=== PATIENT | male | born 1950 | race Caucasian/White ===

== ENCOUNTER 2016-03-26 14:27 | Emergency (ER) | payer BC, MEDICARE ==
--- NOTE | 2016-03-26 15:34 | Emergency Department Record ---
History of Present Illness - General Chief Complaint: Dizziness Stated Complaint: DIZZY,SOME CHEST PAIN,WEAK Time Seen by Provider: 03/26/16 15:21 Source: Patient Mode of Arrival: Ambulatory Limitations: No limitations - History of Present Illness Initial Comments: 65 yo male presents with weakness, sore throat , cough for about 3 days. He is concerned that he may be dehydrated. He states he has has a little less intake the last 3 days while feeling sick. No NVD just decreased appetite and energy. He does have chest pain but states it is a pin point spot on the upper left chest that is tender to touch. No exertional. No rash. No pressure. No shortness of breath. No sweating. Onset/Timin -: Hour(s) Timing: Awoke with symptoms Description: Lightheadedness History of Same: Yes History of Trauma: No Severity: Mild Improves With: Nothing Worsens With: Nothing Associated Symptoms: Chest pain, Weakness - Stanford Coma Scale Eye Response: (4) Open spontaneously Motor Response: (6) Obeys commands Verbal Response: (5) Oriented [place] Total: 15 - Related Data Home Medications Medication Instructions Recorded Confirmed Last Taken Bisoprolol Fumarate/Hctz 1 tab PO DAILY 06/20/14 03/26/16 03/26/16 [Bisoprolol-Hctz 10-6.25 mg Tab] Dicyclomine HCl [Bentyl] 10 mg PO Q8H PRN 06/20/14 03/26/16 03/26/16 Omeprazole 20 mg PO DAILY 06/20/14 03/26/16 03/26/16 Simethicone 125 mg PO DAILY 06/20/14 03/26/16 1 Day Ago Acetaminophen [Tylenol] 325 mg PO Q4H tab 05/20/15 03/26/16 03/26/16 Cholecalciferol (Vitamin D3) 2,000 unit PO DAILY cap 05/20/15 03/26/16 03/26/16 [Vitamin D3] Sucralfate [Carafate] 1 gm PO QID tab 05/20/15 03/26/16 1 Day Ago Ubidecarenone [Coq-10] 100 mg PO DAILY cap 05/20/15 03/26/16 03/26/16 LTashiacidoph & Yobani Ivy.lactis 1 each PO DAILY 06/04/15 03/26/1617 [Probiotic] Prochlorperazine Maleate 10 mg PO QID PRN 08/01/15 03/26/16 1 Day Ago [Compazine] Gabapentin [Neurontin] 300 mg PO DAILY 11/29/15 03/26/16 03/26/16 Allergies Allergy/AdvReac Type Severity Reaction Status Date / Time rofecoxib [From Vioxx] Allergy ABDOMINAL Verified 03/26/16 14:51 PAIN aspirin AdvReac ABDOMINAL Verified 03/26/16 14:51 PAIN Travel Screening - Travel/Exposure Within Last 30 Days Have you traveled within the last 30 days?: Yes Location Detail:: [place] - Travel Symptoms Symptom Screening: None Review of Systems Constitutional: Reports: Malaise, Weakness. Denies: Chills, Fever Eyes: Denies: Eye discharge, Eye pain, Photophobia, Vision change ENT: Reports: Congestion, Throat pain. Denies: Epistaxis Respiratory: Reports: Cough. Denies: Dyspnea, Hemoptysis, Stridor, Wheezes Cardiovascular: Reports: Chest pain (tender spot that can be localized with one finger left upper chest) Endocrine: Reports: Fatigue. Denies: Polydipsia, Polyuria Gastrointestinal: Reports: Nausea. Denies: Abdominal pain, Constipation, Diarrhea, Hematemesis, Hematochezia, Melena, Vomiting Genitourinary: Denies: Dysuria, Frequency, Hematuria Musculoskeletal: Denies: Arthralgia, Back pain, Joint swelling, Myalgia, Neck pain Skin: Denies: Bruising, Change in color Neurological: Reports: Vertigo (at times a little light headed), Weakness ( generalized, no focal weakness). Denies: Abnormal gait, Confusion, Headache, Numbness, Tingling, Tremors Psychiatric: Reports: Anxiety Hematological/Lymphatic: Denies: Blood Clots, Easy bleeding, Easy bruising, Swollen glands Past Medical History - SOCIAL HISTORY Smoking Status: Former smoker Alcohol Use: Rare Drug Use: None - RESPIRATORY Hx Respiratory Disorders: Yes Hx Sleep Apnea: Yes Hx of CPAP: Yes Comment:: wears a c-pap - CARDIOVASCULAR Hx Cardio Disorders: Yes Hx Cardiac Cath: Yes Hx Chest Pain: Yes Hx Hypertension: Yes - NEURO Hx Neuro Disorders: No - GI Hx GI Disorders: Yes Hx Reflux: Yes Hx Rectal Bleeding: Yes - Hx Genitourinary Disorders: No - ENDOCRINE Hx Endocrine Disorders: Yes Hx Diabetes: No Hx Thyroid Disease: Yes - MUSCULOSKELETAL Hx Musculoskeletal Disorders: Yes Hx Arthritis: Yes - PSYCH Hx Psych Problems: Yes Hx Anxiety: Yes - HEMATOLOGY/ONCOLOGY Hx Hematology/Oncology Disorders: Yes Hx Cancer: Yes (internal melonoma) Hx Chemotherapy: Yes Hx Radiation Therapy: No Family Medical History Any Significant Family History?: Yes Hx Heart Disease: Mother, Grandparents Hx Stroke: Grandparents Physical Exam - General General Appearance: Alert, Oriented x3, Cooperative, No acute distress Limitations: No limitations - Head Head exam: Atraumatic, Normocephalic, Normal inspection - Eye Eye exam: Normal appearance, PERRL. negative: Conjunctival injection, Periorbital swelling, Scleral icterus - ENT ENT exam: Normal exam, Mucous membranes moist, Normal orophraynx Ear exam: Normal external inspection. negative: External canal tenderness Nasal Exam: Discharge (clear). negative: Normal inspection, Dried blood Mouth exam: Normal external inspection, Tongue normal Teeth exam: Normal inspection. negative: Dental caries Throat exam: Normal inspection. negative: Tonsillar erythema, Tonsillar exudate - Neck Neck exam: Normal inspection, Full ROM. negative: Tenderness - Respiratory Respiratory exam: Normal lung sounds bilaterally, Chest wall tenderness (tender spot Left upper chest on one rib that is reproducible, no swelling, redness or rash). negative: Accessory muscle use, Prolonged expiratory, Respiratory distress, Rhonchi, Stridor, Wheezes - Cardiovascular Cardiovascular Exam: Regular rate, Normal rhythm, Normal heart sounds - GI/Abdominal GI/Abdominal exam: Soft. negative: Distended, Guarding, Rigid, Tenderness - Rectal Rectal exam: Deferred - exam: Deferred - Extremities Extremities exam: Normal inspection, Full ROM, Normal capillary refill. negative: Joint swelling, Pedal edema, Tenderness - Back Back exam: Reports: Normal inspection, Full ROM. Denies: CVA tenderness (R), CVA tenderness (L), Muscle spasm, Paraspinal tenderness, Rash noted, Tenderness , Vertebral tenderness - Neurological Neurological exam: Alert, Normal gait, Oriented X3. negative: Altered, CN II- XII intact, Motor sensory deficit - Psychiatric Psychiatric exam: Normal affect, Normal mood. negative: Agitated, Anxious - Skin Skin exam: Dry, Intact, Normal color, Warm. negative: Cyanosis, Diaphoretic, Mottled Course Vital Signs 03/26/16 14:46 Temperature 97.8 F Pulse Rate 72 Respiratory 20 Rate Blood Pressure 131/76 Pulse Ox 97 - Reevaluation(s) Reevaluation #1: EKG NSR rate of 83, intervals normal, axis left, ST no acute changes 03/26/16 15:25 03/26/16 19:03 Reevaluation #2: The labs were reviewed No acute changes His CR is at his baseline of 1.4 03/26/16 17:34 03/26/16 19:03 Reevaluation #3: The chest XR was read as negative DC home with instructions on reasons to return and close followup with his PCP He feels much better after IVF No pain, no nausea 03/26/16 18:39 03/26/16 19:03 Medical Decision Making - Lab Data Result diagrams: 03/26/16 15:36 03/26/16 14:50 Disposition Disposition: Discharge Clinical Impression: Bronchitis, Chest wall pain Disposition: Home, Self-Care Condition: (1) Good Instructions: Acute Bronchitis (ED) Additional Instructions: Return to the ER if you have any fever, weakness, cough, chest pain or new concerns Call your doctor tomorrow for close follow up Forms: Patient Portal Access Time of Disposition: 18:40
[2016-03-26] MEDS: 0.9 % SODIUM CHLORIDE 1,000 ML BAG IV ONE (15:40)
[2016-03-26 15:46] LABS: BASO % 0.6 % (0-6); EOS % 2.3 % (0-6); GRAN % 65.4 % (47-80); HEMATOCRIT 36.8 % (42.0-52.0); HEMOGLOBIN 13.5 gm/dl (14.0-18.0); LYMPH % 21.4 % (16-45); MEAN CELL VOLUME 85.6 fl (81-97); MEAN CORPUSCULAR HGB CONC 36.7 g/dl (32-36); MEAN PLATELET VOLUME 10.5 fl (7.4-10.4); MONO % 10.3 % (0-9); PLATELET COUNT 184 K/uL (130-400); RED CELL DISTRIBUTION WIDTH 13.7 % (11.5-14.5); WHITE BLOOD COUNT W/O DIFF 6.9 K/uL (4.2-12.2)
[2016-03-26 15:47] LABS: MEAN CORPUSCULAR HEMOGLOBIN 31.3 pg (27-33)
[2016-03-26 15:56] LABS: ALBUMIN 4.2 gm/dL (3.5-5.0); ANION GAP 8.7 (7-16); BILIRUBIN,TOTAL 0.73 mg/dL (0.2-1.3); CARBON DIOXIDE 23.3 mmol/L (22-30); CREATININE 1.4 mg/dL (0.66-1.25); TOTAL PROTEIN 6.9 gm/dL (6.3-8.2)
--- NOTE | 2016-03-29 16:45 | RADIOLOGY REPORT ---
DATE: 03/26/2016 at 5:45 p.m. EXAM: TWO-VIEW CHEST. HISTORY: Chest pain with shortness of breath and dizziness. Left-sided chest discomfort for the past day. TECHNIQUE: PA and lateral upright views of the chest were obtained. COMPARISON: 06/20/2014. FINDINGS: The heart is normal in size. There is mild calcification of the aorta. The mediastinum and pulmonary vasculature are otherwise normal. The lungs are clear. There is no pneumothorax or effusion. The bones appear intact. IMPRESSION: STABLE CHEST WITH NO ACUTE PROCESS IDENTIFIED. JOB NUMBER: [id number] MTDD
== END 2016-03-26 18:52 | disposition home or self-care (01) ==
LOC: ER 14:27
DX: J20.9 Acute bronchitis, unspecified (principal); R42 Dizziness and giddiness; R53.1 Weakness; R07.89 Other chest pain; Z87.891 Personal history of nicotine dependence
CPT/HCPCS: 71020; 80048; 80076; 83690; 85025; 93005; 93010; 96360; 96361; 99284; J7030

== ENCOUNTER 2016-04-25 14:53 | Emergency (ER) | payer BC, MEDICARE ==
--- NOTE | 2016-04-25 15:16 | Emergency Department Record ---
History of Present Illness - General Chief Complaint: Fall Injury Stated Complaint: FALL INJURY, HEAD Time Seen by Provider: 04/25/16 15:09 Source: Patient, RN notes reviewed Mode of Arrival: Ambulatory - History of Present Illness Initial Comments: fell yesterday on the ice at work and hit the back of his head and low back area and he feels dizzy and balance is off and he has a headache. 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 Place Fall Occurred: Other Loss of Consciousness: None Prolonged Down Time?: No Symptoms Prior to Fall: None Severity: Mild Severity scale (1-10): 5 Quality: Aching Context: Tripped/slipped Associated Symptoms: Denies - Related Data Home Medications Medication Instructions Recorded Confirmed Last Taken Bisoprolol Fumarate/Hctz 1 tab PO DAILY 06/20/14 04/25/16 03/26/16 [Bisoprolol-Hctz 10-6.25 mg Tab] Dicyclomine HCl [Bentyl] 10 mg PO Q8H PRN 06/20/14 04/25/16 03/26/16 Omeprazole 20 mg PO DAILY 06/20/14 04/25/16 03/26/16 Simethicone 125 mg PO DAILY 06/20/14 04/25/16 1 Day Ago Acetaminophen [Tylenol] 325 mg PO Q4H tab 05/20/15 04/25/16 03/26/16 Cholecalciferol (Vitamin D3) 2,000 unit PO DAILY cap 05/20/15 04/25/16 03/26/16 [Vitamin D3] Sucralfate [Carafate] 1 gm PO QID tab 05/20/15 04/25/16 1 Day Ago Ubidecarenone [Coq-10] 100 mg PO DAILY cap 05/20/15 04/25/16 03/26/16 L.acidoph & Paracasei,B.lactis 1 each PO DAILY 06/04/15 04/25/16 03/26/16 [Probiotic] Prochlorperazine Maleate 10 mg PO QID PRN 08/01/15 04/25/16 1 Day Ago [Compazine] Gabapentin [Neurontin] 300 mg PO DAILY 09/09/0704/25/16 03/26/16 Allergies Allergy/AdvReac Type Severity Reaction Status Date / Time rofecoxib [From Vioxx] Allergy ABDOMINAL Verified 03/26/16 14:51 PAIN aspirin AdvReac ABDOMINAL Verified 03/26/16 14:51 PAIN Travel Screening - Travel/Exposure Within Last 30 Days Have you traveled within the last 30 days?: No Review of Systems Reviewed: No additional complaints except as noted below Constitutional: Reports: As per HPI. Denies: Chills, Fever, Malaise, Night sweats, Weakness, Weight change Eyes: Reports: As per HPI. Denies: Eye discharge, Eye pain, Photophobia, Vision change ENT: Reports: As per HPI. Denies: Congestion, Dental pain, Ear pain, Epistaxis , Hearing loss, Throat pain Respiratory: Reports: As per HPI. Denies: Cough, Dyspnea, Hemoptysis, Stridor, Wheezes Cardiovascular: Reports: As per HPI. Denies: Arrhythmia, Chest pain, Dyspnea on exertion, Edema, Murmurs, Orthopnea, Palpitations, Paroxysmal nocturnal dyspnea, Rheumatic Fever, Syncope Endocrine: Reports: As per HPI. Denies: Fatigue, Heat or cold intolerance, Polydipsia, Polyuria Gastrointestinal: Reports: As per HPI. Denies: Abdominal pain, Constipation, Diarrhea, Hematemesis, Hematochezia, Melena, Nausea, Vomiting Genitourinary: Reports: As per HPI. Denies: Dysuria, Frequency, Hematuria, Incontinence, Retention, Testicular pain, Testicular mass, Urgency Musculoskeletal: Reports: As per HPI. Denies: Arthralgia, Back pain, Gout, Joint swelling, Myalgia, Neck pain Skin: Reports: As per HPI. Denies: Bruising, Change in color, Change in hair/ nails, Lesions, Pruritus, Rash Neurological: Reports: As per HPI, Headache. Denies: Abnormal gait, Confusion, Numbness, Paresthesias, Seizure, Tingling, Tremors, Vertigo, Weakness Psychiatric: Reports: As per HPI. Denies: Anxiety, Auditory hallucinations, Depression, Homicidal thoughts, Suicidal thoughts, Visual hallucinations Hematological/Lymphatic: Reports: As per HPI. Denies: Anemia, Blood Clots, Easy bleeding, Easy bruising, Swollen glands Past Medical History - SOCIAL HISTORY Smoking Status: Former smoker Alcohol Use: None Drug Use: None - RESPIRATORY Hx Respiratory Disorders: Yes Hx Sleep Apnea: Yes Hx of CPAP: Yes Comment:: wears a c-pap - CARDIOVASCULAR Hx Cardio Disorders: Yes Hx Cardiac Cath: Yes Hx Chest Pain: Yes Hx Hypertension: Yes - NEURO Hx Neuro Disorders: No - GI Hx GI Disorders: Yes Hx Reflux: Yes Hx Rectal Bleeding: Yes - Hx Genitourinary Disorders: No - ENDOCRINE Hx Endocrine Disorders: Yes Hx Diabetes: No Hx Thyroid Disease: Yes - MUSCULOSKELETAL Hx Musculoskeletal Disorders: Yes Hx Arthritis: Yes - PSYCH Hx Psych Problems: Yes Hx Anxiety: Yes - HEMATOLOGY/ONCOLOGY Hx Hematology/Oncology Disorders: Yes Hx Cancer: Yes (internal melonoma) Hx Chemotherapy: Yes Hx Radiation Therapy: No Family Medical History Any Significant Family History?: Yes Hx Heart Disease: Mother, Grandparents Hx Stroke: Grandparents Physical Exam - General General Appearance: Alert, Oriented x3, Cooperative, Mild distress - Head Head exam: Normal inspection - Eye Eye exam: Normal appearance, PERRL Pupils: Normal accommodation - ENT ENT exam: Normal exam, Mucous membranes moist, Normal external ear exam, Normal orophraynx, TM's normal bilaterally Ear exam: Normal external inspection. negative: External canal tenderness Nasal Exam: Normal inspection. negative: Discharge, Sinus tenderness Mouth exam: Normal external inspection, Tongue normal Teeth exam: Normal inspection. negative: Dental caries Throat exam: Normal inspection. negative: Tonsillar erythema, Tonsillar exudate - Neck Neck exam: Normal inspection, Full ROM. negative: Tenderness - Respiratory Respiratory exam: Normal lung sounds bilaterally. negative: Respiratory distress - Cardiovascular Cardiovascular Exam: Regular rate, Normal rhythm, Normal heart sounds - GI/Abdominal GI/Abdominal exam: Soft, Normal bowel sounds. negative: Tenderness - Rectal Rectal exam: Deferred - exam: Deferred - Extremities Extremities exam: Normal inspection, Full ROM, Normal capillary refill. negative: Tenderness - Back Back exam: Reports: Normal inspection, Full ROM. Denies: Muscle spasm, Rash noted, Tenderness - Neurological Neurological exam: Abnormal gait, Alert, CN II-XII intact, Motor sensory deficit , Normal gait, Oriented X3, Reflexes normal, Other (balance is off and nausea and headache) - Psychiatric Psychiatric exam: Normal affect, Normal mood - Skin Skin exam: Dry, Intact, Normal color, Warm Course Vital Signs 04/25/16 15:00 Temperature 1 F L Pulse Rate 95 H Respiratory 20 Rate Blood Pressure 128/78 Pulse Ox 96 Medical Decision Making - Data Complexity MDM Data: X-Ray Ordered and/or Reviewed (CT head neg and Cspine neg) Disposition Clinical Impression: Head trauma Qualifiers: Encounter type: initial encounter Qualified Code(s): S09.90XA - Unspecified injury of head, initial encounter Concussion Qualifiers: Encounter type: initial encounter Loss of consciousness presence/duration: without LOC Qualified Code(s): S06.0X0A - Concussion without loss of consciousness, initial encounter Disposition: Home, Self-Care Condition: (1) Good Instructions: Concussion (ED) Additional Instructions: tylenol every 6 hours for headache increase fluid follow up with family in 5 days Forms: Patient Portal Access Time of Disposition: 16:09
--- NOTE | 2016-04-29 13:04 | CT SCAN REPORT ---
DATE: 04/25/2016. EXAM: CT SCAN OF THE CERVICAL SPINE. HISTORY: Status post fall. TECHNIQUE: Serial axial CT scan of the cervical spine was performed at 2.5 mm intervals from the base of the skull to the thoracic inlet without the use of intravenous contrast. Sagittal and coronal reconstruction views were provided. COMPARISON: No comparison CT scans are available. FINDINGS: The vertebral body height, contour, and AP alignment of the cervical spine spine is within normal limits. Multilevel degenerative disc disease is noted. There is no CT evidence of a fracture or dislocation of the cervical spine. Prevertebral soft tissue and parapharyngeal fat are unremarkable. The bilateral parotid, submandibular, and thyroid glands are unremarkable. There is no CT evidence of cervical lymphadenopathy. The airways are patent. The lung windows of the lung apices are clear. There is mild reversal of the normal lordosis which may be related to the cervical collar. 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 JOB NUMBER: [id number] MTDD
--- NOTE | 2016-04-29 13:09 | CT SCAN REPORT ---
DATE: 04/25/2016. EXAM: CT SCAN OF THE HEAD. HISTORY: The patient has a history of a fall. TECHNIQUE: Serial axial CT scan of the head was performed at 2.5 mm intervals from the base of the skull to the apex without the use of intravenous contrast. COMPARISON: A comparison CT scan of the head dated 08/01/2015 was provided. FINDINGS: The ventricles, cisterns, and sulci appears within normal limits for size, shape, and attenuation. There is no mass or mass effect. The rai and white differentiation appear within normal limits. There is no CT evidence of intra- or extra-axial fluid collection to suggest bleeding. The bone windows demonstrate no CT evidence of a fracture or dislocation of the skull. The paranasal sinuses are unremarkable. IMPRESSION: STABLE CT APPEARANCE OF THE BRAIN WITH RESPECT TO THE PRIOR EXAMINATION. JOB NUMBER: [id number] MTDD
== END 2016-04-25 16:18 | disposition home or self-care (01) ==
LOC: ER 14:53
DX: S06.0X0A Concussion without loss of consciousness, initial encounter (principal); M54.5 Low back pain; R42 Dizziness and giddiness; W00.0XXA Fall on same level due to ice and snow, initial encounter; Y92.89 Other specified places as the place of occurrence of the external cause; Y99.0 Civilian activity done for income or pay
CPT/HCPCS: 70450; 72125; 99283

== ENCOUNTER 2016-06-13 16:03 | Emergency (ER) | payer BC, MEDICARE ==
[2016-06-13] MEDS ORDERED: ASPIRIN 81 MG CHEWABLE TABLET PO ONE (16:07)
--- NOTE | 2016-06-13 16:10 | Emergency Department Record ---
History of Present Illness - General Chief Complaint: Chest Pain Stated Complaint: CHEST PAIN AND LIGHT HEADED Time Seen by Provider: 06/13/16 16:07 Mode of Arrival: Wheelchair - History of Present Illness Initial Comments: anterior sharp chest pain in the left upper chest area and the pain is reproducilbe on palpation and his anxious about his colon caner diagnosis. No dyspnea or nausea. Onset/Timin -: Days(s) Onset: Awoke with symptoms Pain Location: Substernal, Left chest Pain Radiation: None Severity scale (1-10): 7 Quality: Heaviness Consistency: Intermittent Worsens With: Eating Anginal Symptoms: Dyspnea Treatments Prior to Arrival: None - Related Data Home Medications Medication Instructions Recorded Confirmed Last Taken Bisoprolol Fumarate/Hctz 1 tab PO BID 06/20/14 06/13/16 03/26/16 [Bisoprolol-Hctz 10-6.25 mg Tab] Dicyclomine HCl [Bentyl] 10 mg PO Q8H PRN 06/20/14 06/13/16 03/26/16 Omeprazole 20 mg PO DAILY 06/20/14 06/13/16 03/26/16 Simethicone 125 mg PO DAILY 06/20/14 06/13/16 1 Day Ago Acetaminophen [Tylenol] 325 mg PO Q4H tab 05/20/15 06/13/16 03/26/16 Cholecalciferol (Vitamin D3) 2,000 unit PO DAILY cap 05/20/15 06/13/16 03/26/16 [Vitamin D3] Sucralfate [Carafate] 1 gm PO QID tab 05/20/15 06/13/16 1 Day Ago Ubidecarenone [Coq-10] 100 mg PO DAILY cap 05/20/15 06/13/16 03/26/16 L.acidoph & Paracasei,B.lactis 1 each PO DAILY 06/04/15 06/13/16 03/26/16 [Probiotic] Prochlorperazine Maleate 10 mg PO QID PRN 08/01/15 06/13/16 1 Day Ago [Compazine] Gabapentin [Neurontin] 300 mg PO DAILY 11/29/15 06/13/16 03/26/16 Prednisone [Horacio] 2 mg PO DAILY 06/13/16 06/13/16 Unknown Previous Rx's Medication Instructions Recorded Tramadol HCl 50 mg PO Q6H #20 tab 06/13/16 Allergies Allergy/AdvReac Type Severity Reaction Status Date / Time rofecoxib [From Vioxx] Allergy ABDOMINAL Verified 06/13/16 16:11 PAIN aspirin AdvReac ABDOMINAL Verified 06/13/16 16:11 PAIN Travel Screening - Travel/Exposure Within Last 30 Days Have you traveled within the last 30 days?: No Review of Systems Reviewed: No additional complaints except as noted below Constitutional: Reports: As per HPI. Denies: Chills, Fever, Malaise, Night sweats, Weakness, Weight change Eyes: Reports: As per HPI. Denies: Eye discharge, Eye pain, Photophobia, Vision change ENT: Reports: As per HPI. Denies: Congestion, Dental pain, Ear pain, Epistaxis , Hearing loss, Throat pain Respiratory: Reports: As per HPI. Denies: Cough, Dyspnea, Hemoptysis, Stridor, Wheezes Cardiovascular: Reports: As per HPI, Chest pain. Denies: Arrhythmia, Dyspnea on exertion, Edema, Murmurs, Orthopnea, Palpitations, Paroxysmal nocturnal dyspnea, Rheumatic Fever, Syncope Endocrine: Reports: As per HPI. Denies: Fatigue, Heat or cold intolerance, Polydipsia, Polyuria Gastrointestinal: Reports: As per HPI. Denies: Abdominal pain, Constipation, Diarrhea, Hematemesis, Hematochezia, Melena, Nausea, Vomiting Genitourinary: Reports: As per HPI. Denies: Dysuria, Frequency, Hematuria, Incontinence, Retention, Testicular pain, Testicular mass, Urgency Musculoskeletal: Reports: As per HPI. Denies: Arthralgia, Back pain, Gout, Joint swelling, Myalgia, Neck pain Skin: Reports: As per HPI. Denies: Bruising, Change in color, Change in hair/ nails, Lesions, Pruritus, Rash Neurological: Reports: As per HPI. Denies: Abnormal gait, Confusion, Headache, Numbness, Paresthesias, Seizure, Tingling, Tremors, Vertigo, Weakness Psychiatric: Reports: As per HPI. Denies: Anxiety, Auditory hallucinations, Depression, Homicidal thoughts, Suicidal thoughts, Visual hallucinations Hematological/Lymphatic: Reports: As per HPI. Denies: Anemia, Blood Clots, Easy bleeding, Easy bruising, Swollen glands Past Medical History - SOCIAL HISTORY Smoking Status: Former smoker Drug Use: None - RESPIRATORY Hx Respiratory Disorders: Yes Hx Sleep Apnea: Yes Hx of CPAP: Yes Comment:: wears a c-pap - CARDIOVASCULAR Hx Cardio Disorders: Yes Hx Cardiac Cath: Yes Hx Chest Pain: Yes Hx Hypertension: Yes - NEURO Hx Neuro Disorders: No - GI Hx GI Disorders: Yes Hx Reflux: Yes Hx Rectal Bleeding: Yes - Hx Genitourinary Disorders: No - ENDOCRINE Hx Endocrine Disorders: Yes Hx Diabetes: No Hx Thyroid Disease: Yes - MUSCULOSKELETAL Hx Musculoskeletal Disorders: Yes Hx Arthritis: Yes - PSYCH Hx Psych Problems: Yes Hx Anxiety: Yes - HEMATOLOGY/ONCOLOGY Hx Hematology/Oncology Disorders: Yes Hx Cancer: Yes (internal melonoma) Hx Chemotherapy: Yes Hx Radiation Therapy: No Family Medical History Hx Heart Disease: Mother, Grandparents Hx Stroke: Grandparents Physical Exam - General General Appearance: Alert, Oriented x3, Cooperative, No acute distress - Head Head exam: Normal inspection - Eye Eye exam: Normal appearance, PERRL Pupils: Normal accommodation - ENT ENT exam: Normal exam, Mucous membranes moist, Normal external ear exam, Normal orophraynx, TM's normal bilaterally Ear exam: Normal external inspection. negative: External canal tenderness Nasal Exam: Normal inspection. negative: Discharge, Sinus tenderness Mouth exam: Normal external inspection, Tongue normal Teeth exam: Normal inspection. negative: Dental caries Throat exam: Normal inspection. negative: Tonsillar erythema, Tonsillar exudate - Neck Neck exam: Normal inspection, Full ROM. negative: Tenderness - Respiratory Respiratory exam: Normal lung sounds bilaterally. negative: Respiratory distress - Cardiovascular Cardiovascular Exam: Regular rate, Normal rhythm, Normal heart sounds - GI/Abdominal GI/Abdominal exam: Soft, Normal bowel sounds. negative: Tenderness - Rectal Rectal exam: Deferred - exam: Deferred - Extremities Extremities exam: Normal inspection, Full ROM, Normal capillary refill. negative: Tenderness - Back Back exam: Reports: Normal inspection, Full ROM. Denies: Muscle spasm, Rash noted, Tenderness - Neurological Neurological exam: Alert, Normal gait, Oriented X3, Reflexes normal - Psychiatric Psychiatric exam: Normal affect, Normal mood - Skin Skin exam: Dry, Intact, Normal color, Warm Course Vital Signs 06/13/16 16:04 Temperature 98.0 F Pulse Rate 74 Respiratory 18 Rate Blood Pressure 111/64 Pulse Ox 96 chest pain is better Medical Decision Making - Lab Data Result diagrams: 06/13/16 16:13 06/13/16 16:13 Disposition Clinical Impression: Chest wall pain Disposition: Home, Self-Care Condition: (1) Good Instructions: Costochondritis (ED) Additional Instructions: follow up with his primary DrTashi in 5 days tramadol 50 one every 6 hours Prescriptions: Tramadol HCl 50 mg PO Q6H #20 tab Forms: Patient Portal Access Time of Disposition: 17:19
[2016-06-13 16:35] LABS: BASO % 0.6 % (0-6); EOS % 4.5 % (0-6); GRAN % 51.8 % (47-80); HEMATOCRIT 37.4 % (42.0-52.0); HEMOGLOBIN 13.4 gm/dl (14.0-18.0); LYMPH % 32.8 % (16-45); MEAN CELL VOLUME 86.2 fl (81-97); MEAN CORPUSCULAR HEMOGLOBIN 30.8 pg (27-33); MEAN CORPUSCULAR HGB CONC 35.8 g/dl (32-36); MEAN PLATELET VOLUME 9.9 fl (7.4-10.4); MONO % 10.3 % (0-9); PLATELET COUNT 212 K/uL (130-400); RED BLOOD COUNT 4.34 M/uL (4.40-5.70); RED CELL DISTRIBUTION WIDTH 13.1 % (11.5-14.5); WHITE BLOOD COUNT W/O DIFF 4.9 K/uL (4.2-12.2)
[2016-06-13] MEDS ORDERED: KETOROLAC 30 MG/ML VIAL IVP ONE (16:37)
[2016-06-13 16:47] LABS: ANION GAP 6.7 (7-16); BLOOD UREA NITROGEN 24 mg/dL (9-20); CARBON DIOXIDE 24.3 mmol/L (22-30); CREATININE 1.6 mg/dL (0.66-1.25); EST GLOMERULAR FILTRATION RATE 46 ml/min; GLUCOSE,RANDOM 101 mg/dL (70-110)
[2016-06-13 16:59] LABS: CKMB 1.9 ug/L (0-6)
[2016-06-13 17:00] LABS: TROPONIN I < 0.012 ng/mL (0.00-0.034)
--- NOTE | 2016-06-15 12:42 | RADIOLOGY REPORT ---
EXAM: CHEST, TWO VIEWS HISTORY: PATIENT HAS LEFT SIDED CHEST PAIN TIMES ONE WEEK. TECHNIQUE: Two views of the chest were provided along with the comparison study dated 03/26/16. FINDINGS: The cardiomediastinal silhouette is within normal limits for size and contour. The nasreen appear unremarkable. Tortuosity of the thoracic aorta is noted. There is no radiographic evidence of a focal infiltrate or pleural effusion. No pneumothorax is noted. COPD changes are identified. IMPRESSION: NO RADIOGRAPHIC EVIDENCE OF AN ACUTE INTRATHORACIC PROCESS. JOB NUMBER: [id number] [facility]
== END 2016-06-13 17:39 | disposition home or self-care (01) ==
LOC: ER 16:03
DX: R07.89 Other chest pain (principal); R06.02 Shortness of breath; C18.9 Malignant neoplasm of colon, unspecified; I10 Essential (primary) hypertension; Z87.891 Personal history of nicotine dependence
CPT/HCPCS: 99284 ×2; 96374; 85025; 85730; 82553; 84484; 80048; 71020; 93005; 93010; J1885

== ENCOUNTER 2016-10-06 15:56 | Emergency (ER) | payer BC, MEDICARE ==
[2016-10-06] MEDS ORDERED: 0.9 % SODIUM CHLORIDE 1,000 ML BAG IV ONE ×2 (16:43→18:05)
[2016-10-06] MEDS ORDERED: ONDANSETRON HCL IV 4 MG/2 ML VIAL IV ONE (16:43)
[2016-10-06 16:52] LABS: BASO % 1.2 % (0-6); GRAN % 47.4 % (47-80); HEMATOCRIT 38.2 % (42.0-52.0); HEMOGLOBIN 13.5 gm/dl (14.0-18.0); LYMPH % 36.4 % (16-45); MEAN CELL VOLUME 83.2 fl (81-97); MEAN CORPUSCULAR HEMOGLOBIN 29.4 pg (27-33); MEAN CORPUSCULAR HGB CONC 35.3 g/dl (32-36); MEAN PLATELET VOLUME 9.2 fl (7.4-10.4); PLATELET COUNT 183 K/uL (130-400); RED BLOOD COUNT 4.59 M/uL (4.40-5.70); RED CELL DISTRIBUTION WIDTH 13.6 % (11.5-14.5); WHITE BLOOD COUNT W/O DIFF 4.3 K/uL (4.2-12.2)
[2016-10-06 17:02] LABS: ANION GAP 11.7 (7-16); BLOOD UREA NITROGEN 20 mg/dL (9-20); CARBON DIOXIDE 23.3 mmol/L (22-30); CREATININE 1.2 mg/dL (0.66-1.25); EST GLOMERULAR FILTRATION RATE > 60 ml/min; GLUCOSE,RANDOM 81 mg/dL (70-110)
[2016-10-06] MEDS ORDERED: HYDROMORPHONE HCL 1 MG/ML CPJ IVP ONE (17:16)
[2016-10-06 17:40] LABS: ALBUMIN 3.8 gm/dL (3.5-5.0); BILIRUBIN,TOTAL 1.42 mg/dL (0.2-1.3); TOTAL PROTEIN 6.7 gm/dL (6.3-8.2)
[2016-10-06 18:11] LABS: THYROID STIMULATING HORMONE 0.33 uIU/ml (0.465-4.68)
[2016-10-06] MEDS ORDERED: PROMETHAZINE HCL 25 MG/ML VIAL IVP ONE (18:43)
[2016-10-06 18:47] LABS: URINE APPEARANCE CLEAR; URINE BILIRUBIN NEGATIVE (NEGATIVE); URINE BLOOD TRACE-I (NEGATIVE); URINE COLOR YELLOW; URINE GLUCOSE (UA) NEGATIVE (NEGATIVE); URINE KETONE NEGATIVE (NEGATIVE); URINE LEUKOCYTE ESTERASE NEGATIVE (NEGATIVE); URINE NITRITE NEGATIVE (NEGATIVE); URINE PROTEIN NEGATIVE (NEGATIVE); URINE UROBILINOGEN 0.2 E.U./dL (0.20 - 1.00)
[2016-10-06] MEDS ORDERED: 0.9 % SODIUM CHLORIDE 1000ML 1,000 ML IV ONE (18:51)
[2016-10-06 19:01] LABS: T3 UPTAKE 33.7 % (23.5-40.5); THYROXINE (T4) 10.4 ug/dl (5.53-11.0)
[2016-10-06 19:03] LABS: URINE EPITHELIAL CELLS 0 - 2 (FEW); URINE RBC 0 - 2 (NONE SEEN); URINE WBC 0 - 2 (0-2/hpf)
--- NOTE | 2016-10-06 19:26 | Emergency Department Record ---
History of Present Illness - General Chief complaint: Nausea, Vomiting, Diarrhea Stated complaint: VOMITTING,ACHES,DIARRHEA Time Seen by Provider: 10/06/16 17:05 Source: Patient Mode of Arrival: Ambulatory Limitations: No limitations - History of Present Illness Initial comments: pt feels weak and has n/v and feels dehydrated. this frequently occurs Onset/Timin -: Days(s) Description of Vomiting: Other Associated Abdominal Pain: Yes Location: Diffuse Severity: Moderate Severity scale (1-10): 7 Quality: Aching Consistency: Constant Improves with: None Worsens with: None - Related Data Home Medications Medication Instructions Recorded Confirmed Last Taken Dicyclomine HCl [Bentyl] 10 mg PO Q8H PRN 06/20/14 10/06/16 1 Day Ago ~10/05/16 Omeprazole 20 mg PO DAILY 06/20/14 10/06/16 1 Day Ago ~10/05/16 Simethicone 125 mg PO DAILY 06/20/14 10/06/16 1 Day Ago ~10/05/16 Acetaminophen [Tylenol] 325 mg PO Q4H tab 05/20/15 10/06/16 1 Day Ago ~10/05/16 Cholecalciferol (Vitamin D3) 2,000 unit PO DAILY cap 05/20/15 10/06/16 1 Day Ago [Vitamin D3] ~10/05/16 Sucralfate [Carafate] 1 gm PO QID tab 05/20/15 10/06/16 1 Day Ago ~10/05/16 Ubidecarenone [Coq-10] 100 mg PO DAILY cap 05/20/15 10/06/16 1 Day Ago ~10/05/16 L.acidoph,Paracasei, B.lactis 1 each PO DAILY 06/04/15 10/06/16 1 Day Ago [Probiotic] ~10/05/16 Prochlorperazine Maleate 10 mg PO QID PRN 08/01/15 10/06/16 1 Day Ago [Compazine] ~10/05/16 Gabapentin [Neurontin] 300 mg PO DAILY 11/29/15 10/06/16 1 Day Ago ~10/05/16 Escitalopram Oxalate [Lexapro] 10 mg PO DAILY 10/06/16 10/06/16 1 Day Ago ~10/05/16 Previous Rx's Medication Instructions Recorded Tramadol HCl 50 mg PO Q6H #20 tab 06/13/16 Promethazine HCl [Phenergan] 12.5 mg PO TID #10 tablet 10/06/16 Allergies Allergy/AdvReac Type Severity Reaction Status Date / Time rofecoxib [From Vioxx] Allergy ABDOMINAL Verified 10/06/16 16:38 PAIN aspirin AdvReac ABDOMINAL Verified 10/06/16 16:38 PAIN Travel Screening - Travel/Exposure Within Last 30 Days Have you traveled within the last 30 days?: No - Travel/Exposure Within Last Year Have you traveled outside the [place] in the last year?: No - Additonal Travel Details Have you been exposed to anyone with a communicable illness?: No - Travel Symptoms Symptom Screening: None Review of Systems Reviewed: No additional complaints except as noted below Constitutional: Reports: As per HPI. Denies: Chills, Fever, Malaise, Night sweats, Weakness, Weight change Eyes: Reports: As per HPI. Denies: Eye discharge, Eye pain, Photophobia, Vision change ENT: Reports: As per HPI. Denies: Congestion, Dental pain, Ear pain, Epistaxis , Hearing loss, Throat pain Respiratory: Reports: As per HPI. Denies: Cough, Dyspnea, Hemoptysis, Stridor, Wheezes Cardiovascular: Reports: As per HPI. Denies: Arrhythmia, Chest pain, Dyspnea on exertion, Edema, Murmurs, Orthopnea, Palpitations, Paroxysmal nocturnal dyspnea, Rheumatic Fever, Syncope Endocrine: Reports: As per HPI. Denies: Fatigue, Heat or cold intolerance, Polydipsia, Polyuria Gastrointestinal: Reports: As per HPI. Denies: Abdominal pain, Constipation, Diarrhea, Hematemesis, Hematochezia, Melena, Nausea, Vomiting Genitourinary: Reports: As per HPI. Denies: Dysuria, Frequency, Hematuria, Incontinence, Retention, Testicular pain, Testicular mass, Urgency Musculoskeletal: Reports: As per HPI. Denies: Arthralgia, Back pain, Gout, Joint swelling, Myalgia, Neck pain Skin: Reports: As per HPI. Denies: Bruising, Change in color, Change in hair/ nails, Lesions, Pruritus, Rash Neurological: Reports: As per HPI. Denies: Abnormal gait, Confusion, Headache, Numbness, Paresthesias, Seizure, Tingling, Tremors, Vertigo, Weakness Psychiatric: Reports: As per HPI. Denies: Anxiety, Auditory hallucinations, Depression, Homicidal thoughts, Suicidal thoughts, Visual hallucinations Hematological/Lymphatic: Reports: As per HPI. Denies: Anemia, Blood Clots, Easy bleeding, Easy bruising, Swollen glands Past Medical History - SOCIAL HISTORY Smoking Status: Former smoker Alcohol Use: None Drug Use: None - RESPIRATORY Hx Respiratory Disorders: Yes Hx Sleep Apnea: Yes Hx of CPAP: Yes Comment:: wears a c-pap - CARDIOVASCULAR Hx Cardio Disorders: Yes Hx Cardiac Cath: Yes Hx Chest Pain: Yes Hx Hypertension: Yes - NEURO Hx Neuro Disorders: No - GI Hx GI Disorders: Yes Hx Reflux: Yes Hx Rectal Bleeding: Yes - Hx Genitourinary Disorders: No - ENDOCRINE Hx Endocrine Disorders: Yes Hx Diabetes: No Hx Thyroid Disease: Yes - MUSCULOSKELETAL Hx Musculoskeletal Disorders: Yes Hx Arthritis: Yes - PSYCH Hx Psych Problems: Yes Hx Anxiety: Yes - HEMATOLOGY/ONCOLOGY Hx Hematology/Oncology Disorders: Yes Hx Cancer: Yes (internal melonoma) Hx Chemotherapy: Yes Hx Radiation Therapy: No Family Medical History Any Significant Family History?: Yes Hx Heart Disease: Mother, Grandparents Hx Stroke: Grandparents Physical Exam - General General Appearance: Alert, Oriented x3, Cooperative, Mild distress - Head Head exam: Normal inspection - Eye Eye exam: Normal appearance, PERRL, EOMI Pupils: Normal accommodation - ENT ENT exam: Normal exam, Mucous membranes moist, Normal external ear exam, Normal orophraynx Ear exam: Normal external inspection. negative: External canal tenderness Nasal Exam: Normal inspection. negative: Discharge, Sinus tenderness Mouth exam: Normal external inspection, Tongue normal Teeth exam: Normal inspection. negative: Dental caries Throat exam: Normal inspection. negative: Tonsillar erythema, Tonsillar exudate - Neck Neck exam: Normal inspection, Full ROM. negative: Tenderness - Respiratory Respiratory exam: Normal lung sounds bilaterally. negative: Respiratory distress - Cardiovascular Cardiovascular Exam: Regular rate, Normal rhythm, Normal heart sounds - GI/Abdominal GI/Abdominal exam: Soft, Normal bowel sounds. negative: Tenderness - Rectal Rectal exam: Deferred - exam: Deferred - Extremities Extremities exam: Normal inspection, Full ROM, Normal capillary refill. negative: Tenderness - Back Back exam: Reports: Normal inspection, Full ROM. Denies: Muscle spasm, Rash noted, Tenderness - Neurological Neurological exam: Alert, CN II-XII intact, Normal gait, Oriented X3 - Psychiatric Psychiatric exam: Normal affect, Normal mood - Skin Skin exam: Dry, Intact, Normal color, Warm Course Vital Signs 10/06/16 10/06/16 16:30 17:58 Temperature 97.5 F L Pulse Rate 72 Pulse Rate [ 63 Pulse Ox Probe] Respiratory 20 20 Rate Blood Pressure 131/69 Blood Pressure 104/59 [Right Arm] Pulse Ox 99 98 - Reevaluation(s) Reevaluation #1: 10/06/16 19:26 pt feels better Medical Decision Making - Lab Data Result diagrams: 10/06/16 16:40 10/06/16 16:40 Lab Results 10/06/16 10/06/16 10/06/16 Range/Units 16:40 16:40 16:45 WBC 4.3 (4.2-12.2) K/uL RBC 4.59 (4.40-5.70) M/uL Hgb 13.5 L (14.0-18.0) gm/dl Hct 38.2 L (42.0-52.0) % MCV 83.2 (81-97) fl MCH 29.4 (27-33) pg MCHC 35.3 (32-36) g/dl RDW 13.6 (11.5-14.5) % Plt Count 183 (130-400) K/uL MPV 9.2 (7.4-10.4) fl Gran % 47.4 (47-80) % Lymphocytes % 36.4 (16-45) % Monocytes % 11.0 H (0-9) % Eosinophils % 4.0 (0-6) % Basophils % 1.2 (0-6) % ESR 13 (0-20) mm/hr Sodium 134 L (136-145) mmol/L Potassium 3.8 (3.5-5.1) mmol/L Chloride 99 (98-107) mmol/L Carbon Dioxide 23.3 (22-30) mmol/L Anion Gap 11.7 (7-16) BUN 20 (9-20) mg/dL Creatinine 1.2 (0.66-1.25) mg/dL Estimated GFR > 60 ml/min Random Glucose 81 (70-110) mg/dL Calcium 9.0 (8.5-10.1) mg/dL Total Bilirubin (0.2-1.3) mg/dL Direct Bilirubin (0-0.3) mg/dL AST (17-59) U/L ALT (21-72) U/L Alkaline Phosphatase (38-126) U/L Total Protein (6.3-8.2) gm/dL Albumin (3.5-5.0) gm/dL Lipase (23-300) U/L TSH (0.465-4.68) uIU/ml Thyroxine (T4) (5.53-11.0) ug/dl T3 Uptake (23.5-40.5) % Urine Color Urine Appearance Urine pH (5.0-8.0) Ur Specific [place] (1.002-1.030) Urine Protein (NEGATIVE) Urine Glucose (UA) (NEGATIVE) Urine Ketones (NEGATIVE) Urine Blood (NEGATIVE) Urine Nitrite (NEGATIVE) Urine Bilirubin (NEGATIVE) Urine Urobilinogen (0.20 - 1.00) E.U./dL Ur Leukocyte Esterase (NEGATIVE) Urine RBC (NONE SEEN) Urine WBC (0-2/hpf) Ur Epithelial Cells (FEW) 10/06/16 10/06/16 10/06/16 Range/Units 16:45 16:45 18:30 WBC (4.2-12.2) K/uL RBC (4.40-5.70) M/uL Hgb (14.0-18.0) gm/dl Hct (42.0-52.0) % MCV (81-97) fl MCH (27-33) pg MCHC (32-36) g/dl RDW (11.5-14.5) % Plt Count (130-400) K/uL MPV (7.4-10.4) fl Gran % (47-80) % Lymphocytes % (16-45) % Monocytes % (0-9) % Eosinophils % (0-6) % Basophils % (0-6) % ESR (0-20) mm/hr Sodium (136-145) mmol/L Potassium (3.5-5.1) mmol/L Chloride (98-107) mmol/L Carbon Dioxide (22-30) mmol/L Anion Gap (7-16) BUN (9-20) mg/dL Creatinine (0.66-1.25) mg/dL Estimated GFR ml/min Random Glucose (70-110) mg/dL Calcium (8.5-10.1) mg/dL Total Bilirubin 1.42 H (0.2-1.3) mg/dL Direct Bilirubin 0.0 (0-0.3) mg/dL AST 32 (17-59) U/L ALT 37 (21-72) U/L Alkaline Phosphatase 102 (38-126) U/L Total Protein 6.7 (6.3-8.2) gm/dL Albumin 3.8 (3.5-5.0) gm/dL Lipase 122 (23-300) U/L TSH 0.33 L (0.465-4.68) uIU/ml Thyroxine (T4) (5.53-11.0) ug/dl T3 Uptake (23.5-40.5) % Urine Color Yellow Urine Appearance Clear Urine pH 6.0 (5.0-8.0) Ur Specific [place] 1.020 (1.002-1.030) Urine Protein Negative (NEGATIVE) Urine Glucose (UA) Negative (NEGATIVE) Urine Ketones Negative (NEGATIVE) Urine Blood Trace-i (NEGATIVE) Urine Nitrite Negative (NEGATIVE) Urine Bilirubin Negative (NEGATIVE) Urine Urobilinogen 0.2 (0.20 - 1.00) E.U./dL Ur Leukocyte Esterase Negative (NEGATIVE) Urine RBC 0 - 2 (NONE SEEN) Urine WBC 0 - 2 (0-2/hpf) Ur Epithelial Cells 0 - 2 (FEW) 10/06/16 Range/Units Unknown WBC (4.2-12.2) K/uL RBC (4.40-5.70) M/uL Hgb (14.0-18.0) gm/dl Hct (42.0-52.0) % MCV (81-97) fl MCH (27-33) pg MCHC (32-36) g/dl RDW (11.5-14.5) % Plt Count (130-400) K/uL MPV (7.4-10.4) fl Gran % (47-80) % Lymphocytes % (16-45) % Monocytes % (0-9) % Eosinophils % (0-6) % Basophils % (0-6) % ESR (0-20) mm/hr Sodium (136-145) mmol/L Potassium (3.5-5.1) mmol/L Chloride (98-107) mmol/L Carbon Dioxide (22-30) mmol/L Anion Gap (7-16) BUN (9-20) mg/dL Creatinine (0.66-1.25) mg/dL Estimated GFR ml/min Random Glucose (70-110) mg/dL Calcium (8.5-10.1) mg/dL Total Bilirubin (0.2-1.3) mg/dL Direct Bilirubin (0-0.3) mg/dL AST (17-59) U/L ALT (21-72) U/L Alkaline Phosphatase (38-126) U/L Total Protein (6.3-8.2) gm/dL Albumin (3.5-5.0) gm/dL Lipase (23-300) U/L TSH (0.465-4.68) uIU/ml Thyroxine (T4) 10.40 (5.53-11.0) ug/dl T3 Uptake 33.70 (23.5-40.5) % Urine Color Urine Appearance Urine pH (5.0-8.0) Ur Specific [place] (1.002-1.030) Urine Protein (NEGATIVE) Urine Glucose (UA) (NEGATIVE) Urine Ketones (NEGATIVE) Urine Blood (NEGATIVE) Urine Nitrite (NEGATIVE) Urine Bilirubin (NEGATIVE) Urine Urobilinogen (0.20 - 1.00) E.U./dL Ur Leukocyte Esterase (NEGATIVE) Urine RBC (NONE SEEN) Urine WBC (0-2/hpf) Ur Epithelial Cells (FEW) Disposition Disposition: Discharge Clinical Impression: Dehydration, Weakness Disposition: Home, Self-Care Condition: (1) Good Instructions: Acute Nausea and Vomiting (ED), Dehydration (ED), Weakness (ED) Additional Instructions: follow up with family doctor on saturday. return sooner if worse. push fluids Prescriptions: Promethazine HCl [Phenergan] 12.5 mg PO TID #10 tablet Forms: Patient Portal Access Quality - Quality Measures Quality Measures: N/A - Blood Pressure Screening Blood Pressure Classification: Pre-Hypertensive BP Reading Systolic Measurement: 131 Diastolic Measurement: 69 Screening for High Blood Pressure: < Pre-Hypertensive BP, F/U Documented > [ G8950] Pre-Hypertensive Follow-up Interventions: Referral to alternative/primary care provider.
[2016-10-06] MEDS ORDERED: PROMETHAZINE HCL 25 MG TABLET PO ONE (19:50)
== END 2016-10-06 20:20 | disposition home or self-care (01) ==
LOC: ER 15:56
DX: E86.0 Dehydration (principal); R53.1 Weakness; R19.7 Diarrhea, unspecified; R11.2 Nausea with vomiting, unspecified; I10 Essential (primary) hypertension; Z87.891 Personal history of nicotine dependence
CPT/HCPCS: 99284 ×2; 96374; 96375; 96361; 83690; 85025; 85651; 80076; 80048; 81001; 84443; 84479; 84436; J2405; J1170; J2550; J7030; Q0170

== ENCOUNTER 2016-12-12 01:07 | Emergency (ER) | payer BC, MEDICARE ==
[2016-12-12] MEDS ORDERED: ONDANSETRON HCL IV 4 MG/2 ML VIAL IVP ONE (01:14)
[2016-12-12] MEDS ORDERED: 0.9 % SODIUM CHLORIDE 1,000 ML BAG IV ONE ×2 (01:25→02:05)
[2016-12-12 01:33] LABS: BASO % 0.6 % (0-6); EOS % 5.4 % (0-6); GRAN % 45.3 % (47-80); HEMATOCRIT 41.6 % (42.0-52.0); HEMOGLOBIN 14.7 gm/dl (14.0-18.0); LYMPH % 39.3 % (16-45); MEAN CELL VOLUME 84.7 fl (81-97); MEAN CORPUSCULAR HEMOGLOBIN 29.9 pg (27-33); MEAN CORPUSCULAR HGB CONC 35.3 g/dl (32-36); MONO % 9.4 % (0-9); PLATELET COUNT 204 K/uL (130-400); RED BLOOD COUNT 4.91 M/uL (4.40-5.70); RED CELL DISTRIBUTION WIDTH 14.3 % (11.5-14.5); WHITE BLOOD COUNT W/O DIFF 5.2 K/uL (4.2-12.2)
[2016-12-12] MEDS ORDERED: HYDROMORPHONE HCL 1MG/ML **SYRINGE IVP ONE ×2 (01:33→03:04)
[2016-12-12 01:49] LABS: ALB/GLOB RATIO 1.3 (1.1-1.8); ALKALINE PHOSPHATASE 108 U/L (40-129); ALT/SGPT 14 U/L (<41); AST/SGOT 21 U/L (10.0-50.0); BLOOD UREA NITROGEN 37.5 mg/dL (17.4-49.2); CREATININE 1.1 mg/dL (0.7-1.2); EST GLOMERULAR FILTRATION RATE > 60 mL/min; GLUCOSE,RANDOM 100 mg/dL (74-109); LIPASE 41 U/L (13-60)
[2016-12-12] MEDS ORDERED: PROMETHAZINE HCL 25 MG TABLET PO ONE (03:08)
--- NOTE | 2016-12-12 03:10 | Emergency Department Record ---
History of Present Illness - General Chief complaint: Nausea, Vomiting, Diarrhea Stated complaint: VOMITTING, DIARRHEA, LEON Time Seen by Provider: 12/12/16 01:33 Source: Patient Mode of Arrival: Ambulatory Limitations: No limitations - History of Present Illness Initial comments: pt has had vomiting and diarrhea all day and now has a headache from vomiting. Onset/Timin -: Days(s) Description of Vomiting: Bilious Associated Abdominal Pain: Yes Severity: Mild Quality: Aching Consistency: Constant Improves with: None Worsens with: None Context: History of abdominal surgery Associated Symptoms: Nausea/vomiting, Weakness - Related Data Home Medications Medication Instructions Recorded Confirmed Last Taken Fentanyl [Fentanyl] 12 mcg TD Q72HR 12/12/16 12/12/16 12/12/16 Previous Rx's Medication Instructions Recorded Tramadol HCl 50 mg PO Q6H #20 tab 06/13/16 Promethazine HCl [Phenergan] 12.5 mg PO TID #10 tablet 10/06/16 Allergies Allergy/AdvReac Type Severity Reaction Status Date / Time rofecoxib [From Vioxx] Allergy ABDOMINAL Verified 10/06/16 16:38 PAIN aspirin AdvReac ABDOMINAL Verified 10/06/16 16:38 PAIN Travel Screening - Travel/Exposure Within Last 30 Days Have you traveled within the last 30 days?: No Review of Systems Reviewed: No additional complaints except as noted below Constitutional: Reports: As per HPI. Denies: Chills, Fever, Malaise, Night sweats, Weakness, Weight change Eyes: Reports: As per HPI. Denies: Eye discharge, Eye pain, Photophobia, Vision change ENT: Reports: As per HPI. Denies: Congestion, Dental pain, Ear pain, Epistaxis , Hearing loss, Throat pain Respiratory: Reports: As per HPI. Denies: Cough, Dyspnea, Hemoptysis, Stridor, Wheezes Cardiovascular: Reports: As per HPI. Denies: Arrhythmia, Chest pain, Dyspnea on exertion, Edema, Murmurs, Orthopnea, Palpitations, Paroxysmal nocturnal dyspnea, Rheumatic Fever, Syncope Endocrine: Reports: As per HPI. Denies: Fatigue, Heat or cold intolerance, Polydipsia, Polyuria Gastrointestinal: Reports: As per HPI. Denies: Abdominal pain, Constipation, Diarrhea, Hematemesis, Hematochezia, Melena, Nausea, Vomiting Genitourinary: Reports: As per HPI. Denies: Dysuria, Frequency, Hematuria, Incontinence, Retention, Testicular pain, Testicular mass, Urgency Musculoskeletal: Reports: As per HPI. Denies: Arthralgia, Back pain, Gout, Joint swelling, Myalgia, Neck pain Skin: Reports: As per HPI. Denies: Bruising, Change in color, Change in hair/ nails, Lesions, Pruritus, Rash Neurological: Reports: As per HPI. Denies: Abnormal gait, Confusion, Headache, Numbness, Paresthesias, Seizure, Tingling, Tremors, Vertigo, Weakness Psychiatric: Reports: As per HPI. Denies: Anxiety, Auditory hallucinations, Depression, Homicidal thoughts, Suicidal thoughts, Visual hallucinations Hematological/Lymphatic: Reports: As per HPI. Denies: Anemia, Blood Clots, Easy bleeding, Easy bruising, Swollen glands Past Medical History - SOCIAL HISTORY Smoking Status: Former smoker Alcohol Use: None Drug Use: None - RESPIRATORY Hx Respiratory Disorders: Yes Hx Sleep Apnea: Yes Hx of CPAP: Yes Comment:: wears a c-pap - CARDIOVASCULAR Hx Cardio Disorders: Yes Hx Cardiac Cath: Yes Hx Chest Pain: Yes Hx Hypertension: Yes - NEURO Hx Neuro Disorders: No - GI Hx GI Disorders: Yes Hx Reflux: Yes Hx Rectal Bleeding: Yes - Hx Genitourinary Disorders: No - ENDOCRINE Hx Endocrine Disorders: Yes Hx Diabetes: No Hx Thyroid Disease: Yes - MUSCULOSKELETAL Hx Musculoskeletal Disorders: Yes Hx Arthritis: Yes - PSYCH Hx Psych Problems: Yes Hx Anxiety: Yes - HEMATOLOGY/ONCOLOGY Hx Hematology/Oncology Disorders: Yes Hx Cancer: Yes (internal melonoma) Hx Chemotherapy: Yes Hx Radiation Therapy: No Family Medical History Any Significant Family History?: Yes Hx Heart Disease: Mother, Grandparents Hx Stroke: Grandparents Physical Exam - General General Appearance: Alert, Oriented x3, Cooperative, Mild distress - Head Head exam: Normal inspection - Eye Eye exam: Normal appearance, PERRL, EOMI Pupils: Normal accommodation - ENT ENT exam: Normal exam, Mucous membranes dry, Normal external ear exam, Normal orophraynx Ear exam: Normal external inspection. negative: External canal tenderness Nasal Exam: Normal inspection. negative: Discharge, Sinus tenderness Mouth exam: Normal external inspection, Tongue normal Teeth exam: Normal inspection. negative: Dental caries Throat exam: Normal inspection. negative: Tonsillar erythema, Tonsillar exudate - Neck Neck exam: Normal inspection, Full ROM. negative: Tenderness - Respiratory Respiratory exam: Normal lung sounds bilaterally. negative: Respiratory distress - Cardiovascular Cardiovascular Exam: Regular rate, Normal rhythm, Normal heart sounds - GI/Abdominal GI/Abdominal exam: Soft, Normal bowel sounds. negative: Tenderness - Rectal Rectal exam: Deferred - exam: Deferred - Extremities Extremities exam: Normal inspection, Full ROM, Normal capillary refill. negative: Tenderness - Back Back exam: Reports: Normal inspection, Full ROM. Denies: Muscle spasm, Rash noted, Tenderness - Neurological Neurological exam: Alert, CN II-XII intact, Normal gait, Oriented X3 - Psychiatric Psychiatric exam: Normal affect, Normal mood - Skin Skin exam: Dry, Intact, Normal color, Warm Course Vital Signs 12/12/16 12/12/16 12/12/16 01:21 01:59 02:55 Temperature 97.5 F L 97.4 F L Pulse Rate [ 76 65 65 Pulse Ox Probe] Respiratory 20 18 18 Rate Blood Pressure 142/83 137/68 123/68 [Left Arm] Pulse Ox 95 98 98 - Reevaluation(s) Reevaluation #1: 12/12/16 03:06 pt feels better Medical Decision Making - Lab Data Result diagrams: 12/12/16 01:26 12/12/16 01:26 Lab Results 12/12/16 12/12/16 Range/Units 01:26 01:26 WBC 5.2 (4.2-12.2) K/uL RBC 4.91 (4.40-5.70) M/uL Hgb 14.7 (14.0-18.0) gm/dl Hct 41.6 L (42.0-52.0) % MCV 84.7 (81-97) fl MCH 29.9 (27-33) pg MCHC 35.3 (32-36) g/dl RDW 14.3 (11.5-14.5) % Plt Count 204 (130-400) K/uL MPV 9.0 (7.4-10.4) fl Gran % 45.3 L (47-80) % Lymphocytes % 39.3 (16-45) % Monocytes % 9.4 H (0-9) % Eosinophils % 5.4 (0-6) % Basophils % 0.6 (0-6) % Sodium 137 (136-145) mmol/L Potassium 3.7 (3.4-4.5) mmol/L Chloride 102 (98-107) mmol/L Carbon Dioxide 24.0 (22-29) mmol/L Anion Gap 11.0 (7-16) BUN 37.5 (17.4-49.2) mg/dL Creatinine 1.1 (0.7-1.2) mg/dL Estimated GFR > 60 mL/min Random Glucose 100 (74-109) mg/dL Calcium 9.3 (8.8-10.2) mg/dL Total Bilirubin 0.80 (0.2-1.0) mg/dL AST 21 (10.0-50.0) U/L ALT 14 (<41) U/L Alkaline Phosphatase 108 (40-129) U/L Total Protein 7.0 (6.6-8.7) g/dL Albumin 4.0 (4.0-5.0) g/dL Globulin 3.0 (1.4-4.8) gm/dL Albumin/Globulin Ratio 1.3 (1.1-1.8) Lipase 41 (13-60) U/L Disposition Disposition: Discharge Clinical Impression: Vomiting and diarrhea, Dehydration Headache Qualifiers: Headache type: tension-type Headache chronicity pattern: acute headache Intractability: not intractable Qualified Code(s): G44.209 - Tension-type headache, unspecified, not intractable Disposition: Home, Self-Care Condition: (1) Good Instructions: Acute Nausea and Vomiting (ED) Additional Instructions: follow up with family doctor. return sooner if worse. push fluids. Forms: Patient Portal Access Quality - Quality Measures Quality Measures: N/A - Blood Pressure Screening Does Patient Have Any of the Following: No Blood Pressure Classification: Normal BP Reading Systolic Measurement: 118 Diastolic Measurement: 66 Screening for High Blood Pressure: < Normal BP, F/U Not Required > [G8783]
[2016-12-12] MEDS ORDERED: PROMETHAZINE HCL 12.5 MG in 0.9 % SODIUM CHLORIDE 100ML 100 ML IVPB ONE (03:12)
== END 2016-12-12 04:15 | disposition home or self-care (01) ==
LOC: ER 01:07
DX: E86.0 Dehydration (principal); R11.2 Nausea with vomiting, unspecified; R19.7 Diarrhea, unspecified; G44.209 Tension-type headache, unspecified, not intractable; I10 Essential (primary) hypertension; Z87.891 Personal history of nicotine dependence
CPT/HCPCS: 99284 ×2; 96376; 96374; 96375; 96361; 83690; 85025; 80053; J2405; J1170; J2550; J7030; Q0170

== ENCOUNTER 2017-02-28 10:19 | Emergency (ER) | payer BC, MEDICARE ==
[2017-02-28] MEDS ORDERED: ONDANSETRON HCL IV 4 MG/2 ML VIAL IVP ONE (10:36)
[2017-02-28] MEDS ORDERED: TRAMADOL HCL 50 MG TABLET PO ONE (10:36)
[2017-02-28] MEDS ORDERED: 0.9 % SODIUM CHLORIDE 1,000 ML BAG IV ONE (10:37)
--- NOTE | 2017-02-28 10:48 | Emergency Department Record ---
History of Present Illness - General Chief complaint: Fatigue and Weakness Stated complaint: DOESN'T FEEL GOOD Time Seen by Provider: 02/28/17 10:27 Source: Patient Mode of Arrival: Ambulatory Limitations: No limitations - History of Present Illness Initial comments: The patient is here due to not feeling well for 3-4 days. He feels weak all over and has no energy. Additionally he is mildly nauseated and has a mild LEON. The patient denies any CP, SOB, fever, chills, cough, AP, dysuria or vomiting. He has had mild loose stools. The patient does have a hx of adrenal insufficiency and his symptoms feel similar to that issues. He was admitted to [facility] last year for 3 days due to the adrenal issue but that was due to weaning himself off of steroids to quickly. Presently he takes 2 mg of Prednisone daily. MD Complaint: Generalized weakness, Lack of energy Onset/Timin -: Days(s) Location: Generalized Improves with: None Worsens with: None Associated Symptoms: Headaches, Nausea/vomiting - [place] Coma Scale Eye Response: (4) Open spontaneously Motor Response: (6) Obeys commands Verbal Response: (5) Oriented [place] Total: 15 - Related Data Home Medications Medication Instructions Recorded Confirmed Last Taken Prednisone 2 mg PO DAILY 02/28/17 02/28/17 Unknown Previous Rx's Medication Instructions Recorded Tramadol HCl 50 mg PO Q6H #20 tab 06/13/16 Promethazine HCl [Phenergan] 12.5 mg PO TID #10 tablet 10/06/16 Allergies Allergy/AdvReac Type Severity Reaction Status Date / Time rofecoxib [From Vioxx] Allergy ABDOMINAL Verified 02/28/17 10:26 PAIN aspirin AdvReac ABDOMINAL Verified 02/28/17 10:26 PAIN Travel Screening - Travel/Exposure Within Last 30 Days Have you traveled within the last 30 days?: No Review of Systems Constitutional: Reports: Malaise. Denies: Chills, Fever Eyes: Denies: Eye discharge ENT: Denies: Congestion Respiratory: Denies: Cough, Dyspnea Cardiovascular: Denies: Arrhythmia, Chest pain Endocrine: Reports: Fatigue Gastrointestinal: Reports: Nausea. Denies: Abdominal pain Genitourinary: Denies: Dysuria Musculoskeletal: Denies: Arthralgia Past Medical History - SOCIAL HISTORY Smoking Status: Former smoker Alcohol Use: None Drug Use: None - RESPIRATORY Hx Respiratory Disorders: Yes Hx Sleep Apnea: Yes Hx of CPAP: Yes Comment:: wears a c-pap - CARDIOVASCULAR Hx Cardio Disorders: Yes Hx Cardiac Cath: Yes Hx Chest Pain: Yes Hx Hypertension: Yes - NEURO Hx Neuro Disorders: No - GI Hx GI Disorders: Yes Hx Reflux: Yes Hx Rectal Bleeding: Yes - Hx Genitourinary Disorders: No - ENDOCRINE Hx Endocrine Disorders: Yes Hx Diabetes: No Hx Thyroid Disease: Yes Comment:: adrenal insufficiency - MUSCULOSKELETAL Hx Musculoskeletal Disorders: Yes Hx Arthritis: Yes - PSYCH Hx Psych Problems: Yes Hx Anxiety: Yes - HEMATOLOGY/ONCOLOGY Hx Hematology/Oncology Disorders: Yes Hx Cancer: Yes (internal melonoma) Hx Chemotherapy: Yes Hx Radiation Therapy: No Family Medical History Any Significant Family History?: Yes Hx Heart Disease: Mother, Grandparents Hx Stroke: Grandparents Physical Exam - General General Appearance: Alert, Oriented x3, Cooperative, No acute distress - Head Head exam: Atraumatic, Normocephalic, Normal inspection - Eye Eye exam: Normal appearance, PERRL, EOMI - ENT Throat exam: Normal inspection. negative: Tonsillar erythema, Tonsillar exudate - Neck Neck exam: Normal inspection, Full ROM. negative: Tenderness - Respiratory Respiratory exam: Normal lung sounds bilaterally. negative: Respiratory distress - Cardiovascular Cardiovascular Exam: Regular rate, Normal rhythm, Normal heart sounds - GI/Abdominal GI/Abdominal exam: Soft, Normal bowel sounds. negative: Tenderness - Extremities Extremities exam: Normal inspection, Full ROM, Normal capillary refill. negative: Tenderness - Neurological Neurological exam: Alert, Normal gait. negative: Abnormal gait, Motor sensory deficit - Psychiatric Psychiatric exam: negative: Anxious, Depressed - Skin Skin exam: negative: Rash Course Vital Signs 02/28/17 10:23 Temperature 98.3 F Pulse Rate 76 Respiratory 18 Rate Blood Pressure 133/72 Pulse Ox 98 - Reevaluation(s) Reevaluation #1: The patient is doing well at this time and is resting comfortably. I did explain to him that his workup is neg and I see no signs of any adrenal insufficiency. We will consult with his Operator Technician for further recommendations. 02/28/17 12:40 Reevaluation #2: The patient is doing very well. His vitals are stable and his lab work does not demonstrate any cause for his complaints. I did consult with the patient's Endocrine doctor who is Dr. Garcia and he would like the patient to double his Prednisone for 5 days and then follow up with him in the office next week. 02/28/17 13:18 Medical Decision Making - Data Complexity MDM Data: Labs Ordered and/or Reviewed, X-Ray Ordered and/or Reviewed, EKG Ordered and/or Reviewed - Lab Data Result diagrams: 02/28/17 10:45 02/28/17 10:45 - EKG Data -: EKG Interpreted by Me EKG: No Acute Changes, Unchanged From Previous - Radiology Data Radiology results: Report reviewed (CXR: Neg.) Disposition Disposition: Discharge Clinical Impression: Weakness Disposition: Home, Self-Care Condition: (2) Stable Instructions: Fatigue (ED) Additional Instructions: Please continue your regular medicines. Please double your Prednisone for 5 days and then back to your normal dose. Please see your Specialist next week for recheck. Return to the ER for any worsening symptoms. Forms: Patient Portal Access Time of Disposition: 13:20 Quality - Quality Measures Quality Measures: N/A - Blood Pressure Screening View Details: Yes Does Patient Have Any of the Following: No Blood Pressure Classification: Normal BP Reading Systolic Measurement: 110 Diastolic Measurement: 63 Screening for High Blood Pressure: < Normal BP, F/U Not Required > [G8783]
[2017-02-28 10:57] LABS: BASO % 0.4 % (0-6); EOS % 3.2 % (0-6); GRAN % 57.5 % (47-80); HEMATOCRIT 40.7 % (42.0-52.0); HEMOGLOBIN 14.4 gm/dl (14.0-18.0); MEAN CELL VOLUME 87.2 fl (81-97); MEAN CORPUSCULAR HEMOGLOBIN 30.8 pg (27-33); MEAN CORPUSCULAR HGB CONC 35.4 g/dl (32-36); MEAN PLATELET VOLUME 9.1 fl (7.4-10.4); MONO % 9.9 % (0-9); PLATELET COUNT 182 K/uL (130-400); RED BLOOD COUNT 4.67 M/uL (4.40-5.70); RED CELL DISTRIBUTION WIDTH 13.6 % (11.5-14.5); WHITE BLOOD COUNT W/O DIFF 5.4 K/uL (4.2-12.2)
[2017-02-28 11:07] LABS: BLOOD UREA NITROGEN 21 mg/dL (8-23); CREATININE 1.1 mg/dL (0.7-1.2); EST GLOMERULAR FILTRATION RATE > 60 mL/min; TOTAL PROTEIN 6.6 g/dL (6.6-8.7)
[2017-02-28 11:09] LABS: GLUCOSE,RANDOM 113 mg/dL (74-109)
[2017-02-28 11:10] LABS: INR 1.05; PARTIAL THROMBOPLASTIN TIME 27.8 SECONDS (24.5-39.1); PROTHROMBIN TIME (PATIENT) 11.3 SECONDS (9.5-12.1)
[2017-02-28 11:12] LABS: ALB/GLOB RATIO 1.4 (1.1-1.8); ALBUMIN 3.8 g/dL (4.0-5.0); ALKALINE PHOSPHATASE 87 U/L (40-129); ALT/SGPT 20 U/L (<41); AST/SGOT 25 U/L (10.0-50.0); CREATINE PHOSPHOKINASE 121 U/L (39-308)
[2017-02-28 11:18] LABS: CKMB 3.5 ng/mL (<6.73)
[2017-02-28 11:25] LABS: THYROID STIMULATING HORMONE 1.05 uIU/mL (0.270-4.20)
[2017-02-28 12:37] LABS: URINE APPEARANCE CLEAR; URINE BILIRUBIN NEGATIVE (NEGATIVE); URINE BLOOD NEGATIVE (NEGATIVE); URINE COLOR YELLOW; URINE GLUCOSE (UA) NEGATIVE (NEGATIVE); URINE KETONE NEGATIVE (NEGATIVE); URINE LEUKOCYTE ESTERASE NEGATIVE (NEGATIVE); URINE NITRITE NEGATIVE (NEGATIVE); URINE PROTEIN NEGATIVE (NEGATIVE); URINE UROBILINOGEN 0.2 E.U./dL (0.20 - 1.00)
--- NOTE | 2017-03-01 09:21 | RADIOLOGY REPORT ---
EXAM: CHEST, TWO VIEWS HISTORY: HEADACHE. MALAISE. NAUSEA. MELANOMA AND COLON CARCINOMA HISTORIES. TECHNIQUE: Upright PA and lateral views of the chest were obtained. Comparison: Two view chest radiographic examination dated 06/13/16. FINDINGS: The heart is not enlarged and the pulmonary vasculature is nondilated. The thoracic aorta is mildly tortuous and atherosclerotic. The lungs and pleural spaces are clear. The lungs are borderline to mildly hyperinflated. There are mild degenerative changes scattered within the visualized spine and shoulder girdles. No definite lytic or blastic bone lesion. IMPRESSION: NO RADIOGRAPHIC EVIDENCE OF ACUTE CARDIOPULMONARY DISEASE UNCHANGED SINCE 06/13/16. JOB NUMBER: [id number] MTDD
== END 2017-02-28 13:38 | disposition home or self-care (01) ==
LOC: ER 10:19
DX: R53.1 Weakness (principal); R51 Headache; R11.0 Nausea; E27.40 Unspecified adrenocortical insufficiency; R19.7 Diarrhea, unspecified
CPT/HCPCS: 99284 ×2; 96374; 96361; 82550; 85025; 85730; 85610; 82553; 80053; 81003; 84443; 84484; 71020; 93005; 93010; J2405; J7030

== ENCOUNTER 2018-03-20 09:03 | Day surgery (SDC) | payer BC, MEDICARE ==
[~2018-03-20 09:03] MED LIST: ACETAMINOPHEN 1,000 MG/100 ML BTL IV ONE
[2018-03-20] MEDS ORDERED: ONDANSETRON HCL IV 4 MG/2 ML VIAL IVP ONE (09:04)
[2018-03-20] MEDS ORDERED: MIDAZOLAM HCL 2MG/2ML VIAL IV ONE (09:04)
[2018-03-20] MEDS ORDERED: EPHEDRINE SULFATE 50 MG/ML ML IV ONE (09:04)
[2018-03-20] MEDS ORDERED: PROPOFOL 10 MG/ML VIAL IV ONE (09:04)
[2018-03-20] MEDS ORDERED: FENTANYL PF 100MCG/2ML VIAL IV ONE (09:04)
[2018-03-20] MEDS ORDERED: BUPIVACAINE 0.25% W/EPI MPF 30ML VIAL IVP ONE (09:04)
[2018-03-20] MEDS ORDERED: SEVOFLURANE 250 ML INH ONE (09:04)
[2018-03-20] MEDS ORDERED: KETOROLAC 30 MG/ML VIAL IVP ONE (09:04)
[2018-03-20] MEDS ORDERED: LIDOCAINE 2% MDV (20MG/ML) 20ML VIAL IV ONE (09:04)
[2018-03-20 09:48] LABS: BASO % 0.8 % (0-6); EOS % 3.8 % (0-6); GRAN % 42.3 % (47-80); HEMATOCRIT 43.7 % (42.0-52.0); HEMOGLOBIN 15.2 gm/dl (14.0-18.0); LYMPH % 42.5 % (16-45); MEAN CELL VOLUME 87.6 fl (81-97); MEAN CORPUSCULAR HEMOGLOBIN 30.5 pg (27-33); MEAN CORPUSCULAR HGB CONC 34.8 g/dl (32-36); MONO % 10.6 % (0-9); PLATELET COUNT 194 K/uL (130-400); RED BLOOD COUNT 4.99 M/uL (4.40-5.70); RED CELL DISTRIBUTION WIDTH 13.9 % (11.5-14.5); WHITE BLOOD COUNT W/O DIFF 5.3 K/uL (4.2-12.2)
[2018-03-20 09:54] LABS: BLOOD UREA NITROGEN 27 mg/dL (8-23); CREATININE 1.2 mg/dL (0.7-1.2); EST GLOMERULAR FILTRATION RATE > 60 mL/min; GLUCOSE,RANDOM 98 mg/dL (74-109)
--- NOTE | 2018-03-21 11:00 | Operative Note ---
DATE OF SURGERY: 03/20/2018 Surgeon: Rory Callejas DO PREOPERATIVE DIAGNOSES: 1. Torn medial meniscus of the left knee. 2. Chondromalacia of the left knee. POSTOPERATIVE DIAGNOSES: 1. Torn medial meniscus of the left knee. 2. Synovitis with medial mid patella plica (2 compartments), left knee. 3. Osteoarthritis, left knee. 4. Chondrocalcinosis, left knee. OPERATION: 1. Arthroscopic partial medial meniscectomy, left knee. 2. Arthroscopic partial synovectomy and plica resection, left knee. 3. Arthroscopic chondroplasty of the medial femoral condyle, lateral femoral condyle, and trochlea, left knee. DESCRIPTION OF PROCEDURE: This 67-year-old male was taken to the operating room and placed in the supine position on the operating room table where general anesthesia was induced. The left lower extremity was elevated, exsanguinated, and the tourniquet inflated to 300 mmHg. Arthroscopic knee ly applied. Left knee prepped with Hibiclens and draped in the usual sterile fashion. An inferolateral portal was established for the 4 mm arthroscope, and initial evaluation of the joint demonstrated synovitis in the suprapatellar pouch and thickening and fibrosis of the medial mid patella plica, which was resected. The patient demonstrated advanced degenerative disease of the patellofemoral joint being mostly in the trochlea with a grade 4 lesion noted in the inferior aspect of the trochlea. There was no normal articular cartilage in the trochlea at all. The patella demonstrated mostly grade 2 changes in the median ridge and medial facet. Chondrocalcinosis was noted there as well. The medial and lateral gutters were unremarkable. The medial compartment entered, and a complex tear of the medial meniscus was present with chondrocalcinosis noted there. The entire medial femoral condyle demonstrated advanced degenerative disease with severe grade 3 changes and large flaps of articular cartilage which were not even attached to the subchondral bone. This was debrided with a rotating shaver. We resected back to the apex of the tear of the medial meniscus which was approximately at the 10-o'clock position and extended from approximately the 8-o'clock position all the way around to the posterior horn but this was not a root tear. The meniscus was then re-probed and confirmed to be stable. The intracondylar notch was examined and found to be normal. The lateral compartment was entered, grade 2 chondromalacia of the center of the weightbearing surface of the lateral femoral condyle was also present, and this was debrided with a rotating shaver. Chondrocalcinosis was noted on the meniscus in the lateral compartment but no tears were identified there. The joint was copiously irrigated and suctioned. The instruments were removed. The portals infiltrated with 0.25% Marcaine with epinephrine. Sterile dressings applied. Tourniquet and knee ly released. The patient taken to the recovery room in satisfactory condition. GROSS PATHOLOGY: This patient demonstrated a grade 4 lesion in the trochlea with grade 2 noted on the patella, grade 3 of the medial femoral condyle, grade 2 of the lateral femoral condyle. A complex tear of the lateral meniscus. Marked synovitis present both the medial and lateral compartments as well as a medial mid patella plica, which was all resected with a rotating shaver. The patient also had chondrocalcinosis as noted above. CC: DO JESIKA Anderson
== END 2018-03-20 12:55 | disposition home or self-care (01) ==
LOC: SUR 09:03
PROVIDERS: ATTEND Orthopaedic Surgery
DX: S83.232A Complex tear of medial meniscus, current injury, left knee, initial encounter (principal); M67.52 Plica syndrome, left knee; M11.262 Other chondrocalcinosis, left knee; M17.12 Unilateral primary osteoarthritis, left knee; E27.40 Unspecified adrenocortical insufficiency; K21.9 Gastro-esophageal reflux disease without esophagitis; G25.81 Restless legs syndrome; G47.33 Obstructive sleep apnea (adult) (pediatric); Z85.038 Personal history of other malignant neoplasm of large intestine
CPT/HCPCS: 29881; 29876; 01400; 85025; 80048; J1885; J2405; J3010